=== PATIENT | male | born 1995 | race Hispanic/Latino ===

== ENCOUNTER 2019-01-07 16:51 | Emergency (ER) | payer OTHER, SELFPAY ==
[2019-01-07 16:53] VITALS: BP 147/96; PULSE 75; RESP 18; TEMP 36.6; O2SAT 98; BMI 29.9
--- NOTE | 2019-01-07 17:07 | CT_ITS ---
STUDY: CT BRAIN WITHOUT CONTRAST REASON FOR EXAM: Male, 23 years old. Overheated. RADIATION DOSAGE (If Supplied By Facility): CTDIvol = ( 44.99 ) mGy, DLP = ( 796.11 ) mGycm TECHNIQUE: Transaxial CT imaging of the brain was performed without administration of intravenous contrast material. Individualized dose optimization techniques were used for this CT. COMPARISON: No relevant priors. FINDINGS: Normal soft tissue structures. Normal calvarium. Normal size ventricles and extra-axial spaces for the patient's age. Normal white matter tracts of the cerebral hemispheres. Normal basal ganglia and thalami. Normal brainstem. Normal cerebellum. There is no intracranial hemorrhage. There are no findings of an acute ischemic infarction. Normal visualized paranasal sinuses. CT/Brain/Head without Contrast IMPRESSION: No acute intracranial process. Electronically Signed: Izabel Mccartney MD at 19:10 EDT Tel , Service support ,
--- NOTE | 2019-01-07 17:07 | EKG12_ITS ---
Test Reason : HYPOGLYCEMIA Blood Pressure : / mmHG Vent. Rate : 070 BPM Atrial Rate : 070 BPM P-R Int : 148 ms QRS Dur : 108 ms QT Int : 388 ms P-R-T Axes : 033 010 028 degrees QTc Int : 419 ms Normal sinus rhythm Normal ECG Confirmed by IAIN ELIAS, LISA ([id number]), image editor JAN SANDOVAL ([id number]) on 01/10/2019 1:02:11 PM Referred By: DC Confirmed By:LISA TIMMONS MD
[2019-01-07 17:10] LABS: Bedside Glucose 166 mg/dL (70-110)
--- NOTE | 2019-01-07 17:10 | ED.VISSUMM ---
- ER Visit Summary Date of Service: 01/07/19 Chief Complaint: Loss of consciousness History of Present Illness: The patient is a 23 M who presents from work for loss of consciousness. 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 He is unsure if he was working outside or in the store which is not air conditioned. He went to sit in the break room and then cannot remember if he lost consciousness or not. He feels shaky and he has a frontal headache. He was found to have a glucose of 66 by EMS who treated him with oral glucose and glucagon. He feels like his symptoms have subsided. He denies any seizure or syncope history. Denies any trauma. Denies drug or alcohol use. Denies any history of this in the past. Physical Examination: Afebrile and vital signs unremarkable. Alert and oriented. No acute distress. Head is atraumatic. HEENT exam unremarkable. Cranial nerves grossly intact. Neck nontender. Heart regular rate and rhythm. Lungs clear. Abdomen soft and nontender. No focal or lateralizing neurologic abnormalities grossly. No tremor or shaking noted. Test Results: EKG, lab work, chest x-ray, CT brain pending. Emergency Department Course and Treatment: We will check orthostatics. Fluid bolus ordered. His blood sugar here is 166. Work-up as above. Will reassess. Patient had a headache and some nausea and was treated with Tylenol and Zofran. EKG showed sinus rhythm at a rate of 70. Troponin normal. Chest x-ray normal. CT brain unremarkable. Patient had no further neurologic symptoms. No seizure-like activity. He had some confusion when his sugars were low, but that has resolved. Otherwise lab work looks good. White count 12.9. This is nonspecific. He has no infectious symptoms. On reevaluation, patient is feeling better. No further symptoms or issues. Patient will be discharged home to follow-up with his doctor for outpatient evaluation. He should return right away for any new or worsening issues. Patient's family mentioned that he does get frequent headaches. I will refer him to see his PCP and also neurology. Stay hydrated. Eat regularly. Return for any complications. Treatment Plan: As above Disposition: Discharge Impression: 1. Syncope 2. Hypoglycemia This note was generated with [employer]*ation software. It may contain incorrect words, spelling, and punctuation that were not noted in review of the chart prior to signing
--- NOTE | 2019-01-07 17:20 | RAD_ITS ---
STUDY: X-RAY CHEST REASON FOR EXAM: Male, 23 years old. Hypoglycemia. Overheated outside today. TECHNIQUE: Single frontal view of the chest. COMPARISON: None. FINDINGS: The lungs are clear and expanded. There is no demonstrated pleural abnormality. Normal size heart. Normal mediastinum and joyce. Normal visualized pulmonary arteries. Normal visualized aortic arch and descending thoracic aorta. Normal visualized thoracic spine. Normal visualized ribs, clavicles, and shoulders. There is no demonstrated abnormality of the visualized soft tissue structures of the upper abdomen. RAD/Chest 1 View (Portable) IMPRESSION: No acute cardiopulmonary process. Electronically Signed: Izabel Mccartney MD at 17:33 EDT Tel , Service support ,
[2019-01-07 18:38] VITALS: O2SAT 98
[2019-01-07 18:46] LABS: Absolute Lymphocyte Count 2.12 X10^3/uL (0.83-4.51); Absolute Neutrophil Count 9.8 X10^3/uL (2.0-7.7); Basophil# 0.06 X10^3/uL; Basophil% 0.5 % (0-1); Eosinophil# 0.03 X10^3/uL; Eosinophils% 0.2 % (0-5); Hemoglobin 15.3 g/dL (13.0-16.5); Lymphocyte # 2.12 X10^3/ul (4.0); Lymphocyte % 16.4 % (19-41); Mean Corp Hgb Conc 34.8 g/dL (32-36); Mean Corpuscular Hgb 30.3 pg (27.0-32.0); Mean Corpuscular Volume 87.1 fL (80-94); Mean Platelet Vol. 8.7 fl (6.2-12.0); Monocyte# 0.91 X10^3/uL; NRBC Flagged by Analyzer 0 % (0-5); Neutrophil # 9.77 X10^3/uL (2.7-7.7); Neutrophil % 75.7 % (47-70); Platelet Count 249 K/mm3 (150-450); RBC Distribution Width CV 11.9 % (11.6-14.6); RBC Distribution Width SD 38.5 fl (35.1-43.9); Red Blood Count 5.05 M/mm3 (4.6-6.2); White Blood Count 12.9 K/mm3 (4.4-11.0)
[2019-01-07] MEDS: Ondansetron 4 MG/2 ML Vial IV (18:50)
[2019-01-07] MEDS: Acetaminophen 500 MG Tablet 1000 MG PO (18:50)
[2019-01-07] MEDS: 0.9% Normal Saline 1,000 ML 1000 ML IV (18:52)
[2019-01-07 19:04] LABS: Anion Gap 5 (5-15); BUN 14 mg/dL (7-18); BUN/Creat Ratio 13.9 RATIO (10-20); Calcium,Total 9.4 mg/dL (8.5-10.1); Chloride 106 mmol/L (98-107); Creatinine, Serum 1.01 mg/dL (0.70-1.30); EST Glomerular Filtration Rate 96 mL/min (>60); Est Glom Filt Rate - Afr Amer 116 mL/min (>60); Estimated Creatinine Clearance 120.12 ml/min; Glucose 86 mg/dL (74-106); Potassium 3.9 mmol/L (3.5-5.1); Sodium Level 136 mmol/L (136-145)
[2019-01-07 19:35] VITALS: BP 122/82; PULSE 73; RESP 18; O2SAT 99
[2019-01-07 19:42] VITALS: BP 123/68; PULSE 65
[2019-01-07 19:44] VITALS: BP 137/86; BP 140/88; PULSE 63; PULSE 65
--- NOTE | 2019-01-07 20:03 | ED.DEP ---
ED Disposition - Plan for ED Patient: Instructions: HYPOGLYCEMIA, Non Diabetic, SYNCOPE, Unk Cause Referrals: Tristan Yo MD [Primary Care Provider] - Sera Rodriguez MD [STAFF PHYSICIAN] -
[2019-01-07 20:07] VITALS: BP 126/73; PULSE 71; RESP 18; O2SAT 100
== END 2019-01-07 20:12 | disposition home or self-care (01) ==
PROVIDERS: Emergency Provider Emergency Medicine; Family Provider Pediatrics; PCP Pediatrics
DX: R55 Syncope and collapse (principal); E16.2 Hypoglycemia, unspecified
CPT/HCPCS: 70450; 71045; 80048; 82962; 84484; 85025; 93005; 96361; 96374; 99285; J7030; A4216; J1610; J2405

== ENCOUNTER → 2019-02-04 | Outpatient (CLI) | payer OTHER, SELFPAY ==
[2019-01-07 16:53] VITALS: BMI 29.9
--- NOTE | 2019-02-04 15:43 | EEG ---
- Electroencephalogram Date of service 02/04/2019 History EEG is being done in this 23 yr M to rule out seizures EEG Description: This is an 18 channel EEG with 10-20 lead placement system. Bipolar montages, and Referential montages were reviewed. Photic stimulation and Hyperventilation were performed. The posterior dominant rhythm is 10 HZ synchronous, symmetric, reacting to eye opening and closing. Photo stimulation elicited normal driving response but no abnormal photoparoxysmal response, Hyperventilation did not elicit any abnormal photoparoxysmal response. Sleep was identified. There is no abnormal background slowing noted. There was no epileptiform discharges or electrographic seizures noted during this recording. EKG artefact was noted during the record. EEG Interpretation This is a normal awake and asleep EEG. There is no epileptiform discharges or electrographic seizures noted during the record.
== END | disposition home or self-care (01) ==
LOC: PSN 09:17
PROVIDERS: Family Provider Family Medicine; PCP Family Medicine; Referring Provider Psychiatry & Neurology Neurology; Visit Provider Psychiatry & Neurology Neurology
DX: R55 Syncope and collapse (principal)
CPT/HCPCS: 95819

== ENCOUNTER → 2019-02-10 | Outpatient (CLI) | payer OTHER, SELFPAY ==
--- NOTE | 2019-02-10 07:15 | MRI_ITS ---
STUDY: MRI BRAIN WITHOUT CONTRAST REASON FOR EXAM: Male, 23 years old. Syncope, blurry vision, headache TECHNIQUE: Standardized multiplanar fat and water weighted pulse sequences were obtained. COMPARISON: CT 01/07/2019 FINDINGS: Normal size of the ventricles and extra-axial spaces for the patient's age. Normal white matter tracts of the supratentorial brain. There is no evidence for recent intracranial ischemia or other cause of cytotoxic edema on diffusion weighted imaging (DWI). Normal T2* images of the brain without demonstrated susceptibility artifact. There is no demonstrated hemosiderin stain. Normal bilateral basal ganglia. Normal thalami. There is no extra-axial fluid accumulation. Normal flow voids within the major intracranial circulation suggesting patency by spin echo criteria. Normal sella turcica, pituitary gland, infundibular stalk, optic chiasm and hypothalamus. Normal tectal plate and pineal gland. Normal midbrain, celina and medulla. Normal cerebellum. Normal basal cisterns. Normal bilateral temporal bones. Normal bilateral internal auditory canals. No demonstrated orbital abnormality, within the constraints of a routine brain study. Normal visualized paranasal sinuses. Normal calvarium and skull base. Normal visualized soft tissue structures. Normal visualized upper cervical spine. MRI/Brain without Contrast IMPRESSION: Normal unenhanced MRI of the brain. Electronically Signed: Rickey Gaming MD at 8:57 EDT Tel , Service support ,
== END | disposition home or self-care (01) ==
PROVIDERS: Family Provider Family Medicine; PCP Family Medicine; Referring Provider Psychiatry & Neurology Neurology; Visit Provider Psychiatry & Neurology Neurology
DX: R55 Syncope and collapse (principal)
CPT/HCPCS: 70551

== ENCOUNTER 2021-06-22 04:48 | Emergency (ER) | payer BC, SELFPAY ==
[2021-06-22 04:48] VITALS: BP 122/84; PULSE 100; RESP 18; TEMP 35.9; O2SAT 96; BMI 29.9
--- NOTE | 2021-06-22 05:13 | EX.ED.DYSGE1 ---
HPI History of Present Illness Chief Complaint: Cold Sx Informant: patient Onset/Context/Timing Onset: Weeks Context: Gradual Onset Current Severity: Mild Maximum Severity: Moderate Narrative Narrative: Patient presents with continued URI symptoms. He initially developed symptoms 1 week ago including cough, congestion, fever, sore throat. [facility] and had a negative Covid antigen test. He was given eyedrops for conjunctivitis at that time and states that part seems to be better. Temperature has been ranging between 100-101. Does respond to Tylenol and ibuprofen. He does have pain in his throat especially with swallowing, but no difficulty swallowing. He has pain over his anterior chest only with coughing. [facility] Medical History (Updated 06/22/21 @ 05:[address] Padmini Amato MD) Conjunctivitis, left eye Glaucoma Home Medications brimonidine 2 drp LEFT EYE DAILY 06/22/21 [History Last Taken Unknown] dorzolamide-timolol 2 drp LEFT EYE DAILY 06/22/21 [History Last Taken Unknown] netarsudil-latanoprost [Rocklatan] 1 drp EACH EYE DAILY 06/22/21 [History Last Taken Unknown] Allergy/AdvReac Type Severity Reaction Status Date / Time amoxicillin Allergy Rash Verified 03/27/21 14:44 Social History Smoking Status: Never smoker ROS ROS ED Constitutional Constitutional ED: Reports fever(s); Denies chills Eyes Eyes: Denies change in vision ENT ENT ED: Reports rhinorrhea, sore throat and other Details: Congestion Cardiovascular Cardiovascular: Reports chest pain and other Details: Chest pain only with cough Respiratory/Chest Respiratory/Chest: Reports cough and sputum; Denies dyspnea Gastrointestinal Gastrointestinal: Denies abdominal pain, diarrhea, nausea or vomiting Genitourinary Genitourinary ED: Denies dysuria Musculoskeletal Musculoskeletal: Denies back pain Integumentary Denies rash Neurologic Neurologic: Denies headache(s) or weakness Psychiatric Psychiatric: Denies anxiety or depression Allergic/Immunologic Allergic/Immunologic ED: Denies urticaria EXAM Physical Exam Const Vital Signs: 06/22/21 04:48 06/22/21 04:53 Temperature 96.6 F L Temperature Source Temporal Pulse Rate 100 Respiratory Rate 18 Respiratory Effort Normal Respiratory Depth Normal Respiratory Pattern Normal Blood Pressure 122/84 H Blood Pressure Mean 96 Pulse Ox 96 Oxygen Delivery Method Room Air Positive well nourished and well developed General Appearance ED: well developed HEENT Reports moist mucous membranes HEENT Narrative: 2+ tonsils with mild erythema. Uvula midline. Eyes PERRL and EOMs intact bilaterally Neck supple Neck Narrative: Mild bilateral cervical lymphadenopathy. Chest Wall inspection of chest normal and palpation of chest normal Resp normal respiratory effort and clear to auscultation bilaterally Cardio regular rate and regular rhythm GI non-tender Palpation: soft Extremity normal to inspection Neuro oriented x3 Sensorium / Orientation: alert Psych mental status grossly normal Skin no rashes or lesions noted MDM MDM MDM Narrative Medical decision making narrative: Rapid strep test obtained. Covid PCR test sent. Chest x-ray ordered. Radiography Chest X-Ray - ED: 1 View, Read by ED Physician, Normal, Heart, Lungs and Mediastinum Treatment and Re-Evaluation Comments:: Rapid strep test is negative. Covid PCR is pending and results will be texted to the patient's phone. Chest x-ray is clear with no evidence of infiltrate. I discussed with the patient that I believe his symptoms are all viral in nature and will usually require 3 weeks for full resolution. He is to continue supportive care. Return instructions are provided. Discharge Plan Triage Chief Complaint: Cold Sx ED Provider: Padmini Amato Dx/Rx/DC Orders Clinical Impression: Viral URI with cough Instructions: ED URI, Viral, No Abx (Adult) Prescriptions: No Action brimonidine 0.2 % drops 2 drp LEFT EYE DAILY RF: 0 dorzolamide-timolol 22.3-6.8 mg/mL drops 2 drp LEFT EYE DAILY RF: 0 Rocklatan 0.02-0.005 % drops 1 drp EACH EYE DAILY RF: 0 Primary Care Provider: Vasu Dao Referrals: Vasu Dao MD [Primary Care Provider] - 1-2 Weeks Disposition Disposition: Home, Self Care
--- NOTE | 2021-06-22 05:40 | RAD_ITS ---
STUDY: X-RAY CHEST REASON FOR EXAM: Male, 25 years old. cough, fever TECHNIQUE: Single AP portable view of the chest. COMPARISON: None. FINDINGS: Minimal patchy groundglass opacities are seen in the right upper lobe, may represent atypical pneumonia or viral pneumonia (COVID-19 ?). There is no demonstrated pleural abnormality. Normal size heart. Normal mediastinum and joyce. Normal visualized pulmonary arteries. Normal visualized aortic arch and descending thoracic aorta. Normal visualized thoracic spine. Normal visualized ribs, clavicles, and shoulders. There is no demonstrated abnormality of the visualized soft tissue structures of the upper abdomen. RAD/Chest 1 View (Portable) IMPRESSION: Minimal patchy groundglass opacities are seen in the right upper lobe, may represent atypical pneumonia or viral pneumonia (COVID-19 ?). Electronically Signed: Chikis Gongora MD at 7:17 EST Tel , Service support ,
== END 2021-06-22 05:59 | disposition home or self-care (01) ==
PROVIDERS: Emergency Provider Emergency Medicine; PCP Family Medicine
DX: J06.9 Acute upper respiratory infection, unspecified (principal)
CPT/HCPCS: 71045; 87635; 87880; 99282; U0003; U0005

== ENCOUNTER 2023-11-28 17:35 | Emergency (ER) | payer BC, SELFPAY ==
[2023-11-28 17:36] VITALS: BP 141/84; PULSE 104; PULSE 110; RESP 16; RESP 18; TEMP 36.5; O2SAT 97; O2SAT 98; BMI 33.0
--- NOTE | 2023-11-28 17:44 | EX.ED.DYSGE1 ---
HPI History of Present Illness Chief Complaint: Abd Pain [facility] Medical History (Updated 06/30/21 @ 00:00 by Background Daemon) Glaucoma Conjunctivitis, left eye Home Medications ?Medication ?Instructions ?Recorded ?Last Taken ?Type brimonidine 0.2 % eye drops 2 drp LEFT EYE DAILY 06/22/21 Unknown History dorzolamide 22.3 mg-timolol 6.8 2 drp LEFT EYE DAILY 06/22/21 Unknown History mg/mL eye drops omeprazole 40 mg capsule,delayed 40 mg PO DAILY #30 caps 11/28/23 Unknown Rx release ondansetron 4 mg disintegrating 4 mg PO Q8H PRN PRN Nausea #10 tabs 11/28/23 Unknown Rx tablet Allergy/AdvReac Type Severity Reaction Status Date / Time amoxicillin Allergy Rash Verified 11/28/23 17:37 Social History Smoking Status: Never smoker EXAM Physical Exam Const Vital Signs: 11/28/23 17:36 11/28/23 17:36 11/28/23 19:36 Temperature 97.7 F L Temperature Source Temporal Pulse Rate 110 H 104 H 84 Respiratory Rate 16 18 16 Blood Pressure 141/84 H 141/84 H 136/83 H Blood Pressure Mean 103 103 100 Pulse Ox 98 97 97 Oxygen Delivery Method Room Air Room Air Room Air 11/28/23 20:56 Temperature 97.4 F L Temperature Source Pulse Rate 87 Respiratory Rate 16 Blood Pressure 132/88 H Blood Pressure Mean 102 Pulse Ox 93 Oxygen Delivery Method MDM MDM MDM Narrative Medical decision making narrative: HISTORY OF PRESENT ILLNESS: 28year old male presents with abdominal pain. Notes been abdominal pain for the last 4 days worse after eating. There is no radiation to the pain. Denies alcohol use. Denies history of abdominal surgeries. No changes in bowel or bladder habits. Also notes some associated epigastric/chest pain. Denies family history of early cardiac but notes his father heart attack at 39. Denies smoking or illicit drug use such as cocaine or methamphetamine. The patient denies recent surgery in the last 4 weeks or immobilization in the last 3 days, denies previous diagnosis of DVT or PE, hemoptysis, unilateral leg swelling or malignancy with treatment the last 6 months or palliative. No estrogen use noted. Patient denies sudden onset of pain, no tearing sensation, no migratory symptoms, no new numbness, weakness or loss of sensation. Patient denies family history or personal history of Connective tissue disorders (Marfan's Syndrome, Marie Danlos etc) REVIEW OF SYSTEMS: All other systems reviewed and are negative except as noted in the history of present illness. At least 10 review of systems reviewed and are negative except as noted in history of present illness. PHYSICAL EXAM: Nursing triage notes reviewed, Vital signs reviewed Constitutional: [facility] see [facility] HENT: MMM Eyes: Pupils equal round and reactive to light, Extraocular muscles intact Neck: No stridor, no JVD, full neck ROM Lungs: Clear to auscultation, No wheezing or rales. No increased work of breathing, no conversational dyspnea, no accessory muscle use, no nasal flaring. No respiratory distress noted Heart: Regular rate and rhythm, No murmurs, No rubs and No gallops, 2+ distal pulses (radial, femoral, posterior tibial) in all extremities Abdomen: Soft, right upper quadrant TTP, positive Gregorio sign no rigidity, rebound or guarding, no obvious peritoneal signs, no palpable pulsatile abdominal masses, no auscultated abdominal bruit : No CVAT Extremities: No edema Neuro: No focal neurological deficits, cranial nerves II through XII intact, 5/5 strength in all extremities. Intact sensation to light touch in all extremities, 2+ reflexes bilateral patella tendons. Normal gait. No ataxia. Skin: No rash or lesions noted MEDICAL DECISION MAKING: Chief Complaint: abdominal pain External records reviewed: none Factors affecting care: none Social determinants of health:none History obtained from others: none Consults: none [facility] Narrative: Patient was hemodynamically stable, afebrile and nontoxic-appearing. Exam with right upper quadrant TTP, positive Gregorio sign I considered the following differential diagnosis: AAA, small bowel obstruction, abdominal perforation, appendicitis, pancreatitis, hepatobiliary pathology (acute cholecystitis), mesenteric ischemia, abnormalities such as pyelonephritis, nephrolithiasis I treat the patient with IV fluids, Toradol, Zofran and Pepcid for symptomatic control. I added additional studies including chest x-ray, EKG and troponin given epigastric nature of his pain. ALL IMAGES (IF OBTAINED) HAVE BEEN PERSONALLY REVIEWED AND INTERPRETED BY MYSELF. EKG with normal sinus rhythm, normal axis, no intervals, no STEMI BMP without significant electrolyte disturbance, noted renal insufficiency, no evidence of metabolic acidosis or endorgan hypoperfusion The patients total bilirubin is elevated however the rest of his liver enzymes were within normal limits and/or not concerning, he had a normal lipase, he was not jaundice suggesting no immediate hepatobiliary obstruction High-sensitivity troponin is negative, no evidence of myocardial ischemia I have personally reviewed the patient's chest x-ray. Chest x-ray is unremarkable for pulmonary edema, pneumothorax, pneumonia or focal cardiopulmonary abnormality. Right upper quadrant ultrasound is negative for acute cholecystitis or signs of hepatobiliary obstruction. I see nothing that would suggest an acute abdomen at this time. Based on history physical exam, risk factors, my suspicion for bowel obstruction, incarcerated hernia, perforated viscus, acute cholecystitis, appendicitis is very low. There is no evidence of peritonitis sepsis or toxicity at this time. I feel the patient can be managed as an outpatient with follow-up with her/his primary physician in the next 24 to 48 hours or soon as possible. Instructions have been given for the patient to return to the ED for worsening pain, anorexia, high fevers, intractable vomiting or bleeding. The patient and/or family, caregivers express understanding. The patient and/or family, caregivers agrees with the plan. Total critical care time today provided was at least 0 minutes. This excludes separately billable procedures. Critical care time (if documented) is secondary to the patient having high probability of clinically significant/life threatening deterioration in the patient's condition which required my urgent intervention. Shared decision making: I will have a discussion with the patient and or visitors regarding risk/benefits of further testing or admission. They will be made aware of of the risk/benefits inherent in this decision they will be given the opportunity to voice understanding. Impression: 1. Epigastric abdominal pain 2. Tachycardic 3. Renal insufficiency 4. Hyperbilirubinemia Disposition: discharge Discharge Myles Washington DO This note was generated with [employer] dictation software. It may contain incorrect words, spelling, and punctuation that were not noted in review of the chart prior to signing. Lab Data Labs: Laboratory Results - last 24 hr 11/28/23 18:24 Sodium 136 Potassium 3.9 Chloride 103 Carbon Dioxide 26.0 Anion Gap 7 BUN 19 H Creatinine 1.54 H Estim Creat Clear Calc 88.28 Est GFR (MDRD) Af Amer 69 Est GFR (MDRD) Non-Af 57 L BUN/Creatinine Ratio 12.3 Glucose 106 Calcium 9.2 Total Bilirubin 1.50 H AST 14 L ALT 40 Alkaline Phosphatase 56 Troponin I High Sens < 3 L Total Protein 7.7 Albumin 3.9 Globulin 3.8 Albumin/Globulin Ratio 1.0 Lipase 40 Radiography Diagnostic Testing: Clinical Impression(s) from Imaging Studies Gallbladder Ultrasound 11/28/23 18:04 IMPRESSION: Significantly limited as above. Fatty liver. Incompletely distended gallbladder with no definite stones. Electronically Signed: Bharathi Villavicencio MD at 19:56 EDT , Chest X-Ray 11/28/23 18:22 IMPRESSION: Normal x-ray examination of the chest. Electronically Signed: Bharathi Villavicencio MD at 19:07 EDT , Discharge Plan Triage Chief Complaint: Abd Pain ED Provider: Myles Washington Dx/Rx/DC Orders Instructions: ED Abdominal Pain Gallstone Poss Prescriptions: New omeprazole 40 mg capsule,delayed release(DR/EC) 40 mg PO DAILY Qty: 30 0RF ondansetron 4 mg tablet,disintegrating 4 mg PO Q8H PRN PRN (Reason: Nausea) Qty: 10 0RF No Action brimonidine 0.2 % drops 2 drp LEFT EYE DAILY dorzolamide-timolol 22.3-6.8 mg/mL drops 2 drp LEFT EYE DAILY Primary Care Provider: Vasu Dao Referrals: Vasu Dao MD [Primary Care Provider] - Activity Restrictions/Additional Instructions: Thank you for trusting us with your care today! Please take Tylenol (2 pills, 650 mg), ibuprofen (2 pills, 400 mg) every 6 hours as needed for pain and fever control. Please return to the emergency department if your symptoms change or worsen. Please follow with your primary care physician for further outpatient evaluation and management. Print Language: Uzbek Disposition Disposition: Home, Self Care Discharge Date/Time: 11/28/23 20:59
--- NOTE | 2023-11-28 18:04 | US_ITS ---
STUDY: ABDOMINAL ULTRASOUND - RIGHT UPPER QUADRANT REASON FOR VISIT: Male, 28 years old PAIN TECHNIQUE: Ultrasound evaluation of the right upper quadrant was performed with real-time and static blanco-scale imaging. TECHNICAL QUALITY: Limited. Examination limited due to a combination of factors including obesity and bowel gas. Also patient is not fasting. This is a very significant limitation when evaluating the gallbladder. COMPARISON: None. FINDINGS: Liver: The liver measures 18.2 cm. There is increased echogenicity consistent with fatty infiltration. The bile ducts are within normal limits. There is hepatic color flow. The direction of portal flow is hepatopetal. There is no demonstrated mass lesion. Gallbladder: Incompletely distended gallbladder. The gallbladder wall measures 3 mm. There is a negative sonographic Gregorio''s sign. There is no pericholecystic fluid. There are no gallstones. Common Bile Duct (C.B.D.): The common bile duct measures 4 mm. Pancreas: There is nonvisualization of the pancreas. Right Kidney: Normal size of the right kidney. The right kidney measures 10.5 cm. Normal renal cortex. The right cortex measures 2.0 cm. There is no demonstrated renal mass or cyst. There is no right hydronephrosis. US/Gallbladder IMPRESSION: Significantly limited as above. Fatty liver. Incompletely distended gallbladder with no definite stones. Electronically Signed: Bharathi Villavicencio MD at 19:56 EDT ,
--- NOTE | 2023-11-28 18:04 | EKG12_ITS ---
Test Reason : ABD PAIN Blood Pressure : / mmHG Vent. Rate : 079 BPM Atrial Rate : 079 BPM P-R Int : 140 ms QRS Dur : 096 ms QT Int : 342 ms P-R-T Axes : 018 000 012 degrees QTc Int : 392 ms Normal sinus rhythm Normal ECG Confirmed by IAIN ELIAS, LISA ([id number]), health editor BEKAH WALLACE ([id number]) on 11/30/2023 9:52:01 AM Referred By: Confirmed By:LISA TIMMONS MD
--- NOTE | 2023-11-28 18:08 | NURSING ---
NO OLD EKGS
[2023-11-28] MEDS: Ondansetron 4 MG/2 ML Vial IV (18:21)
[2023-11-28] MEDS: Ketorolac 15 MG/ML Vial IV (18:21)
[2023-11-28] MEDS: 0.9% Normal Saline (1000mL) 1,000 ML 999 ML IV (18:21)
--- NOTE | 2023-11-28 18:22 | RAD_ITS ---
STUDY: X-RAY CHEST REASON FOR EXAM: Male, 28 years old. epigastric pain/chest pain TECHNIQUE: Single AP portable view of the chest. COMPARISON: 06/22/2021. FINDINGS: The lungs are clear and expanded. There is no demonstrated pleural abnormality. Normal size heart. Normal mediastinum and jyoce. Normal visualized pulmonary arteries. Normal visualized aortic arch and descending thoracic aorta. Normal visualized thoracic spine. Normal visualized ribs, clavicles, and shoulders. There is no demonstrated abnormality of the visualized soft tissue structures of the upper abdomen. RAD/Chest 1 View (Portable) IMPRESSION: Normal x-ray examination of the chest. Electronically Signed: Bharathi Villavicencio MD at 19:07 EDT ,
[2023-11-28] MEDS: Famotidine 200 MG/20 ML MDV 20 MG in 0.9% Normal Saline (Pres. free 8 ML 300 MG IV (18:34)
[2023-11-28 18:48] LABS: AST(SGOT) 14 U/L (15-37); Alanine Aminotransfer ALT/SGPT 40 U/L (16-61); Albumin, Serum 3.9 g/dL (3.2-5.0); Alkaline Phosphatase 56 U/L (45-117); Anion Gap 7 (5-15); BUN 19 mg/dL (7-18); BUN/Creat Ratio 12.3 RATIO (10-20); Calcium,Total 9.2 mg/dL (8.5-10.1); Chloride 103 mmol/L (98-107); Creatinine, Serum 1.54 mg/dL (0.70-1.30); EST Glomerular Filtration Rate 57 mL/min (>60); Est Glom Filt Rate - Afr Amer 69 mL/min (>60); Estimated Creatinine Clearance 88.28 ml/min; Globulin 3.8 g/dL (2.2-4.2); Glucose 106 mg/dL (74-106); Lipase 40 U/L (13-75); Potassium 3.9 mmol/L (3.5-5.1); Protein, Total 7.7 g/dL (6.4-8.2); Sodium Level 136 mmol/L (136-145); Troponin-I HS < 3 pg/mL (3.0-78.0)
[2023-11-28 19:36] VITALS: BP 136/83; PULSE 84; RESP 16; O2SAT 97
[2023-11-28 20:56] VITALS: BP 132/88; PULSE 87; RESP 16; TEMP 36.3; O2SAT 93
== END 2023-11-28 20:59 | disposition home or self-care (01) ==
PROVIDERS: Emergency Provider Emergency Medicine; PCP Family Medicine; Visit Provider Emergency Medicine
DX: R10.13 Epigastric pain (principal); R00.0 Tachycardia, unspecified; E80.6 Other disorders of bilirubin metabolism; N28.9 Disorder of kidney and ureter, unspecified
CPT/HCPCS: 71045; 76705; 80053; 83690; 84484; 93005; 96361; 96365; 96375; 99282; J7030; A4216; J2405; J3490

== ENCOUNTER → 2024-02-18 | Outpatient (CLI) | payer BC, SELFPAY | END | disposition home or self-care (01) | LOC: HPRAD 08:23 | PROVIDERS: PCP Family Medicine; Referring Provider Physician Assistant Surgical; Visit Provider Physician Assistant Surgical | DX: Z00.00 Encounter for general adult medical examination without abnormal findings (principal) ==